=== PATIENT | female | born 1975 | race Caucasian/White ===

== ENCOUNTER 2017-12-10 13:20 | Emergency (ER) | payer SELFPAY ==
[~2017-12-10] VITALS: Ht 152.4 cm; Wt 66.2 kg
[2017-12-10 13:27] VITALS: Ht 152.4 cm; Wt 66.2 kg
[2017-12-10 15:22] VITALS: BP 123/83
== END 2017-12-10 15:22 | disposition home or self-care (01) ==
LOC: ED 13:20
DX: S39.012A Strain of muscle, fascia and tendon of lower back, initial encounter (principal); X50.9XXA Other and unspecified overexertion or strenuous movements or postures, initial encounter; Y93.89 Activity, other specified; Y92.89 Other specified places as the place of occurrence of the external cause; Y99.8 Other external cause status
CPT/HCPCS: J1885